=== PATIENT | male | born 1965 ===

== ENCOUNTER 2018-06-07 07:41 | Observation (INO) | payer OTHER ==
[2018-06-07] VITALS (17 sets, daily range): BP systolic 109–148; BP diastolic 65–95
[~2018-06-07] VITALS: Ht 188 cm; Wt 92.5 kg
[~2018-06-07 07:41] MED LIST: Cefazolin 2GM/50ML dext iso,osmotic IVPB IV ONE; SOFO1TAB PO; acetaminophen 325mg tablet PO ONE; famotidine 20mg tablet PO ONE; gabapentin 300mg capsule PO ONE; metoclopramide 5 mg/ml inj IV ONE; oxyCODONE SR 10mg (sust. release) tab PO ONE; tranexamic acid inj. 1,000 MG in normal saline 100ml IV soln 90 ML IV ONE; vancomycin inj 1,500 MG in normal saline 300ml IV soln IV ONE
[2018-06-07] MEDS: ringers solution, lacted 1,000 ML IV SCH ×3 (08:40→19:40)
[2018-06-07] MEDS ORDERED: ringers solution, lacted 1,000 ML IV SCH ×2 (10:25→16:24)
[2018-06-07] MEDS ORDERED: morphine 4 MG/ML inj SYRINge IV PRN ×4 (10:25→16:25)
[2018-06-07] MEDS ORDERED: proCHLORperazine 10 MG/2 ml inj IV PRN (10:25)
[2018-06-07] MEDS ORDERED: ondansetron/PF 4mg/2ml inj IV PRN ×3 (10:25→18:15)
[2018-06-07] MEDS ORDERED: meperidine/PF 25mg/ml syringe IV PRN ×3 (10:25)
[2018-06-07] MEDS ORDERED: ketorolac trometh. 30mg/ml inj. ONE ×2 (14:27→17:39)
[2018-06-07] MEDS ORDERED: vancomycin 1,000mg inj ONE (14:27)
[2018-06-07] MEDS ORDERED: ROPIVAcaine 0.5% (5mg/ml) 30ml vial ONE ×2 (14:28→15:26)
[2018-06-07] MEDS ORDERED: ceFAZolin 1000mg inj ONE (14:28)
[2018-06-07] MEDS ORDERED: morphine 10mg/ml inj. ONE (14:28)
[2018-06-07] MEDS ORDERED: cloNIDine hcl/PF 100mcg/ml inj ONE (15:26)
[2018-06-07] MEDS ORDERED: sevoflurane 250ml liquid IH ONE (15:45)
[2018-06-07] MEDS ORDERED: midazolam 2 mg/2 ml injection ONE (15:45)
[2018-06-07] MEDS ORDERED: fentaNYL /PF 50mcg/ml 5ml ampule ONE (15:46)
[2018-06-07] MEDS ORDERED: dexamethasone sod phosphate 4mg/ml inj. ONE (16:07)
[2018-06-07] MEDS ORDERED: ondansetron/PF 4mg/2ml inj ONE (16:07)
[2018-06-07] MEDS ORDERED: propofol inj 20 ML IV ONE (16:08)
[2018-06-07] MEDS ORDERED: LIDOcaine 2% (20mg/ml) 5ml vial ONE (16:08)
[2018-06-07] MEDS ORDERED: fentaNYL/PF 50MCG/1 ML 2ML syringe IV PRN (16:25)
[2018-06-07] MEDS ORDERED: hydrALAZINE 20mg/ml inj. IV PRN (16:25)
[2018-06-07] MEDS ORDERED: enalaprilat dihydrate 2.5mg/2ml vial IV PRN (16:25)
[2018-06-07] MEDS ORDERED: fentaNYL/PF 50MCG/1 ML 2ML syringe ONE ×2 (17:14→17:49)
[2018-06-07] MEDS ORDERED: diphenhydrAMINE 25mg capsule PO PRN ×2 (18:15)
[2018-06-07] MEDS ORDERED: acetaminophen 325mg tablet PO PRN (18:15)
[2018-06-07] MEDS ORDERED: HYDROmorphone 1 mg/ml syringe IV PRN ×2 (18:15)
[2018-06-07] MEDS ORDERED: magnesium hydroxide 30ml (MOM) UD suspension PO PRN (18:15)
[2018-06-07] MEDS ORDERED: bisacodyl 10mg suppository rectal RC PRN (18:15)
[2018-06-07] MEDS ORDERED: oxyCODONE IR 5mg (immed. release) tablet PO PRN (18:15)
[2018-06-07] MEDS: fentaNYL/PF 50MCG/1 ML 2ML syringe IV PRN ×2 (18:23→18:32)
[2018-06-07] MEDS ORDERED: vancomycin/NS 1 GM ADD-VANTAGE 250 ML IV SCH (20:00)
[2018-06-07] MEDS: oxyCODONE IR 5mg (immed. release) tablet PO PRN (20:46)
[2018-06-07] MEDS: acetaminophen 325mg tablet PO SCH (20:47)
[2018-06-07] MEDS: gabapentin 300mg capsule PO SCH (20:47)
[2018-06-07] MEDS: potassium cl 20mEq in 1/2 NS 1,000 ML IV SCH (20:49)
[2018-06-07] MEDS ORDERED: sennosides 8.6mg tablet PO SCH (21:00)
[2018-06-07] MEDS ORDERED: tranexamic acid inj. 900 MG in normal saline 100ml IV soln 100 ML IV ONE (21:30)
[2018-06-08] MEDS: oxyCODONE IR 5mg (immed. release) tablet PO PRN ×3 (01:04→11:14)
[2018-06-08] MEDS: ceFAZolin 1GM/D5W- ADD-VANTAGE 50 ML IV SCH ×2 (01:16→08:04)
[2018-06-08 02:00] VITALS: BP 115/68
[2018-06-08] MEDS: acetaminophen 325mg tablet PO SCH ×3 (02:00→13:27)
[2018-06-08] MEDS: potassium cl 20mEq in 1/2 NS 1,000 ML IV SCH ×2 (02:12→10:12)
[2018-06-08 05:00] VITALS: BP 119/89
[2018-06-08] MEDS ORDERED: enoxaparin 40mg/0.4ml syringe SQ SCH (08:00)
[2018-06-08] MEDS: gabapentin 300mg capsule PO SCH ×2 (08:04→13:27)
[2018-06-08 10:00] VITALS: BP 125/78
[2018-06-08] MEDS ORDERED: celeCOXIB 100mg capsule PO SCH (20:00)
[2018-06-09] MEDS ORDERED: acetaminophen 325mg tablet PO PRN (18:15)
== END 2018-06-08 17:00 ==
LOC: PRE-OP 07:41 → EEVIPCON 10:30 → EDSTATUS 10:30 → ORTHO 4S 18:12
PROVIDERS: ADMIT Orthopaedic Surgery; ATTEND Orthopaedic Surgery
DX: M17.12 Unilateral primary osteoarthritis, left knee (principal)
CPT/HCPCS: 27447; 96365; 96366; 96367; 96372; 96375; 97110; 97116; 97161; C1713; C1776; C9250; G0378; J0690; J0735; J1100; J1650; J1885; J2001; J2175; J2250; J2270; J2405; J2704; J2765; J2795; J3010; J3370; J7030; J7120; S2900; A7000